=== PATIENT | male | born 1940 | race Caucasian/White ===

== ENCOUNTER 2018-02-07 15:57 | Emergency (ER) | payer MEDICARE, OTHER ==
--- NOTE | 2018-02-07 18:33 | CT ---
CT OF THE BRAIN WITHOUT CONTRAST 02/07/18 COMPARISON: 03/16/17 HISTORY: Choreiform movements. Slurred speech and involuntary movements. Concern for possible stroke. TECHNIQUE: Multiple contiguous axial images were obtained in a CT of the brain without contrast. FINDINGS: The brain is normal in morphology and attenuation without focal lesions or confluent areas of infarct ion. There is no evidence of hydrocephalus, intracranial hemorrhage, or extra-axial fluid collection. The calvarium and overlying soft tissues are unremarkable. The visualized paranasal sinuses and masto id air cells are well aerated. IMPRESSION: No evidence of acute intracranial abnormality. POS: [facility]
== END 2018-02-07 19:15 | disposition left against medical advice (07) ==
LOC: ERS 15:57
DX: R25.8 Other abnormal involuntary movements (principal); I48.91 Unspecified atrial fibrillation; E78.5 Hyperlipidemia, unspecified; I10 Essential (primary) hypertension
CPT/HCPCS: 70450

== ENCOUNTER 2018-09-15 08:10 | Day surgery (SDC) | payer MEDICARE, OTHER ==
[2018-09-15] MEDS ORDERED: Sodium Chloride 0.9% 20 ML ONE (08:20)
[2018-09-15] MEDS ORDERED: Acetaminophen 500 MG TAB PO PRN (08:28)
[2018-09-15] MEDS ORDERED: diphenhydrAMINE 50 MG in Sodium Chloride 0.9% 50 ML IVPB SCH (08:30)
[2018-09-15 08:42] VITALS: BP 194/85; TEMP 97.6
[2018-09-15] MEDS ORDERED: ADMIXTURE FEE IVPB SCH (08:45)
[2018-09-15] MEDS ORDERED: OCTAGAM IVPB SCH (08:45)
== END 2018-09-15 13:27 | disposition home or self-care (01) ==
LOC: ONC/OP 08:10
PROVIDERS: ATTEND Internal Medicine Hematology & Oncology
DX: M32.10 Systemic lupus erythematosus, organ or system involvement unspecified (principal); D47.3 Essential (hemorrhagic) thrombocythemia; G25.5 Other chorea; G61.9 Inflammatory polyneuropathy, unspecified
CPT/HCPCS: 96365; 96366; 96375; J1200; J1568; J7050

== ENCOUNTER 2018-10-18 08:25 | Day surgery (SDC) | payer MEDICARE, OTHER ==
[2018-10-18] MEDS ORDERED: Sodium Chloride 0.9% 20 ML ONE (08:36)
[2018-10-18 08:47] VITALS: BP 177/80; TEMP 98.7
[2018-10-18] MEDS ORDERED: diphenhydrAMINE 50 MG CAP PO SCH (09:30)
[2018-10-18] MEDS ORDERED: Acetaminophen 500 MG TAB PO SCH (09:30)
[2018-10-18] MEDS ORDERED: PRIVIGEN IVPB SCH (11:00)
[2018-10-18] MEDS ORDERED: ADMIXTURE FEE CHEMO IVPB SCH ×2 (11:00)
[2018-10-18] MEDS ORDERED: OCTAGAM IVPB SCH (11:00)
== END 2018-10-18 14:44 | disposition home or self-care (01) ==
LOC: ONC/OP 08:25
PROVIDERS: ATTEND Internal Medicine Hematology & Oncology
DX: D47.3 Essential (hemorrhagic) thrombocythemia (principal); M32.10 Systemic lupus erythematosus, organ or system involvement unspecified; G25.5 Other chorea; G61.9 Inflammatory polyneuropathy, unspecified; I48.91 Unspecified atrial fibrillation; M32.19 Other organ or system involvement in systemic lupus erythematosus; K21.9 Gastro-esophageal reflux disease without esophagitis; I10 Essential (primary) hypertension; Z79.01 Long term (current) use of anticoagulants; Z79.82 Long term (current) use of aspirin; Z79.899 Other long term (current) drug therapy
CPT/HCPCS: 96365; 96366; J1459; J1568

== ENCOUNTER 2018-10-19 08:47 | Day surgery (SDC) | payer MEDICARE, OTHER ==
[2018-10-19] MEDS ORDERED: diphenhydrAMINE 50 MG CAP PO SCH (09:15)
[2018-10-19] MEDS ORDERED: OCTAGAM IVPB SCH (09:15)
[2018-10-19] MEDS ORDERED: Acetaminophen 500 MG TAB PO SCH (09:15)
[2018-10-19] MEDS ORDERED: PRIVIGEN IVPB SCH (09:15)
[2018-10-19] MEDS ORDERED: ADMIXTURE FEE CHEMO IVPB SCH ×2 (09:15)
[2018-10-19] MEDS ORDERED: Sodium Chloride 0.9% 20 ML ONE (09:32)
[2018-10-19 10:21] VITALS: TEMP 97.6
== END 2018-10-19 17:56 | disposition home or self-care (01) ==
LOC: ONC/OP 08:47
PROVIDERS: ATTEND Internal Medicine Hematology & Oncology
DX: D47.3 Essential (hemorrhagic) thrombocythemia (principal); M32.10 Systemic lupus erythematosus, organ or system involvement unspecified; G25.5 Other chorea; G61.9 Inflammatory polyneuropathy, unspecified
CPT/HCPCS: 96365; 96366; J1459; J1568; J1642

== ENCOUNTER 2018-11-20 11:40 | Day surgery (SDC) | payer MEDICARE, OTHER ==
[2018-11-20] MEDS ORDERED: PRIVIGEN IVPB SCH (12:00)
[2018-11-20] MEDS ORDERED: Acetaminophen 500 MG TAB PO SCH (12:00)
[2018-11-20] MEDS ORDERED: diphenhydrAMINE 50 MG in Sodium Chloride 0.9% 50 ML IVPB SCH (12:00)
[2018-11-20 12:11] VITALS: BP 177/82; TEMP 98.4
== END 2018-11-20 14:15 | disposition home or self-care (01) ==
LOC: ONC/OP 11:40
PROVIDERS: ATTEND Internal Medicine Hematology & Oncology
DX: M32.10 Systemic lupus erythematosus, organ or system involvement unspecified (principal); D47.3 Essential (hemorrhagic) thrombocythemia; G25.5 Other chorea; G61.9 Inflammatory polyneuropathy, unspecified; I48.91 Unspecified atrial fibrillation; I10 Essential (primary) hypertension; K21.9 Gastro-esophageal reflux disease without esophagitis; Z79.01 Long term (current) use of anticoagulants; Z79.02 Long term (current) use of antithrombotics/antiplatelets; Z79.82 Long term (current) use of aspirin; Z79.899 Other long term (current) drug therapy
CPT/HCPCS: 96365; 96366; J1200; J1459; J7050

== ENCOUNTER 2018-11-21 08:18 | Day surgery (SDC) | payer MEDICARE, OTHER ==
[2018-11-21 08:56] VITALS: BP 158/82; TEMP 98.3
[2018-11-21] MEDS ORDERED: Acetaminophen 500 MG TAB PO SCH (09:00)
[2018-11-21] MEDS ORDERED: diphenhydrAMINE 50 MG in Sodium Chloride 0.9% 50 ML IVPB SCH (09:00)
[2018-11-21] MEDS ORDERED: PRIVIGEN IVPB SCH (09:00)
[2018-11-21] MEDS ORDERED: Sodium Chloride 0.9% 20 ML ONE (15:31)
== END 2018-11-21 15:35 | disposition home or self-care (01) ==
LOC: ONC/OP 08:18
PROVIDERS: ATTEND Internal Medicine Hematology & Oncology
DX: D47.3 Essential (hemorrhagic) thrombocythemia (principal); M32.10 Systemic lupus erythematosus, organ or system involvement unspecified; G25.5 Other chorea; G61.9 Inflammatory polyneuropathy, unspecified
CPT/HCPCS: 96365; 96366; 96375; J1200; J1459; J7050

== ENCOUNTER 2018-12-18 09:21 | Day surgery (SDC) | payer MEDICARE, OTHER ==
[~2018-12-18 09:21] MED LIST: Acetaminophen 500 MG TAB PO SCH; OCTAGAM 10% 60 GM in Admixture Fee 1 EACH IVPB SCH; PRIVIGEN IVPB SCH; diphenhydrAMINE 50 MG in Sodium Chloride 0.9% 50 ML IVPB SCH
[2018-12-18] MEDS ORDERED: Sodium Chloride 0.9% 20 ML ONE (09:26)
[2018-12-18] MEDS ORDERED: diphenhydrAMINE 50 MG CAP PO SCH (10:45)
[2018-12-18 10:49] VITALS: BP 153/73; TEMP 98.6
[2018-12-19] MEDS ORDERED: diphenhydrAMINE 50 MG CAP PO SCH (04:15)
== END 2018-12-18 14:52 | disposition home or self-care (01) ==
LOC: ONC/OP 09:21
PROVIDERS: ATTEND Internal Medicine Hematology & Oncology
DX: M32.10 Systemic lupus erythematosus, organ or system involvement unspecified (principal); G25.5 Other chorea; G61.9 Inflammatory polyneuropathy, unspecified; D47.3 Essential (hemorrhagic) thrombocythemia; I48.91 Unspecified atrial fibrillation; I10 Essential (primary) hypertension; K21.9 Gastro-esophageal reflux disease without esophagitis; Z88.2 Allergy status to sulfonamides; Z79.01 Long term (current) use of anticoagulants; Z79.899 Other long term (current) drug therapy
CPT/HCPCS: 96365; 96366; J1200; J1459; J1568; J7050

== ENCOUNTER 2018-12-19 08:36 | Day surgery (SDC) | payer MEDICARE, OTHER ==
[~2018-12-19 08:36] MED LIST changes: +ADMIXTURE FEE IVPB SCH; +OCTAGAM IVPB SCH; -PRIVIGEN IVPB SCH; +diphenhydrAMINE 50 MG CAP PO SCH; -diphenhydrAMINE 50 MG in Sodium Chloride 0.9% 50 ML IVPB SCH
[2018-12-19] MEDS ORDERED: Sodium Chloride 0.9% 20 ML ONE (08:52)
[2018-12-19 09:32] VITALS: BP 165/74; TEMP 98.6
== END 2018-12-19 12:14 | disposition home or self-care (01) ==
LOC: ONC/OP 08:36
PROVIDERS: ATTEND Internal Medicine Hematology & Oncology
DX: M32.19 Other organ or system involvement in systemic lupus erythematosus (principal); D47.3 Essential (hemorrhagic) thrombocythemia; G25.5 Other chorea; G61.9 Inflammatory polyneuropathy, unspecified; I48.91 Unspecified atrial fibrillation; I10 Essential (primary) hypertension; K21.9 Gastro-esophageal reflux disease without esophagitis; Z79.01 Long term (current) use of anticoagulants; Z79.82 Long term (current) use of aspirin; Z79.899 Other long term (current) drug therapy
CPT/HCPCS: 96365; 96366; J1568

== ENCOUNTER 2019-01-16 08:14 | Day surgery (SDC) | payer MEDICARE, OTHER ==
[~2019-01-16 08:14] MED LIST changes: -OCTAGAM 10% 60 GM in Admixture Fee 1 EACH IVPB SCH; +diphenhydrAMINE 50 MG in Sodium Chloride 0.9% 50 ML IVPB SCH
[2019-01-16] MEDS ORDERED: Sodium Chloride 0.9% 20 ML ONE (08:26)
[2019-01-16 09:06] VITALS: BP 161/79; TEMP 98.6
[2019-01-17] MEDS ORDERED: Acetaminophen 500 MG TAB PO SCH (01:15)
[2019-01-17] MEDS ORDERED: OCTAGAM IVPB SCH (01:15)
[2019-01-17] MEDS ORDERED: diphenhydrAMINE 50 MG in Sodium Chloride 0.9% 50 ML IVPB SCH (01:15)
[2019-01-17] MEDS ORDERED: ADMIXTURE FEE IVPB SCH (01:15)
== END 2019-01-16 12:12 | disposition home or self-care (01) ==
LOC: ONC/OP 08:14
PROVIDERS: ATTEND Internal Medicine Hematology & Oncology
DX: D47.3 Essential (hemorrhagic) thrombocythemia (principal); M32.10 Systemic lupus erythematosus, organ or system involvement unspecified; G25.5 Other chorea; G61.9 Inflammatory polyneuropathy, unspecified; I48.91 Unspecified atrial fibrillation; I10 Essential (primary) hypertension; K21.9 Gastro-esophageal reflux disease without esophagitis
CPT/HCPCS: 96365; 96366; 96375; J1200; J1568; J7050

== ENCOUNTER 2019-01-17 00:23 | Day surgery (SDC) | payer MEDICARE, OTHER ==
[2019-01-17] MEDS ORDERED: Sodium Chloride 0.9% 20 ML ONE (08:17)
[2019-01-17] MEDS ORDERED: OCTAGAM IVPB SCH (08:30)
[2019-01-17] MEDS ORDERED: diphenhydrAMINE 50 MG/ML VIAL IVP SCH (08:30)
[2019-01-17] MEDS ORDERED: ADMIXTURE FEE IVPB SCH (08:30)
[2019-01-17] MEDS ORDERED: Acetaminophen 500 MG TAB PO SCH (08:30)
[2019-01-17 10:27] VITALS: BP 165/71; TEMP 98
== END 2019-01-17 12:40 | disposition home or self-care (01) ==
LOC: ONC/OP 00:23
PROVIDERS: ATTEND Internal Medicine Hematology & Oncology
DX: D47.3 Essential (hemorrhagic) thrombocythemia (principal); M32.10 Systemic lupus erythematosus, organ or system involvement unspecified; G25.5 Other chorea; G61.9 Inflammatory polyneuropathy, unspecified
CPT/HCPCS: 96365; 96366; J1200; J1568

== ENCOUNTER 2020-07-16 08:46 | Day surgery (SDC) | payer MEDICARE, OTHER ==
[2020-07-15 14:33] VITALS: BMI 23.7
[2020-07-16 09:26] LABS: INR-International Normal Ratio 1.2; PTT 34.1 sec (22.9-36.1); Prothrombin Time 14.8 sec (12.0-14.7)
[2020-07-16 10:29] VITALS: BP 150/68; TEMP 97.8
--- NOTE | 2020-07-16 15:15 | CT ---
CT GUIDED RIGHT ILIAC BONE MARROW ASPIRATION AND BIOPSY: CLINICAL HISTORY: Thrombocytopenia. SLE. PROCEDURE: The procedure including the risks and complications were explained to the patient, and informed conse nt was obtained. The patient was placed on the CT scan table in the prone position. Noncontrasted CT images were obtained through the pelvis. An area was marked overlying the RIGHT asim c bone, and the area was meticulously prepped and draped in usual sterile fashion. The skin and subcutaneous tissues were infiltrated with buffered 1% lidocaine for local anesthesia. After a small skin incision was made, an 11-gauge needle was advanced and positioning was confirmed w ith axial CT images. Approximately 10 milliliters of bone marrow aspirate was obtained. The needle was then further advanced, and a bone marrow biopsy was performed. The needle was removed, and hemost asis was achieved with direct pressure. The patient tolerated the procedure well and without immediate complication. The patient was transported to radiology nurses holding area for further lyndon toring prior to discharge. IMPRESSION: Technically successful percutaneous bone marrow aspiration and biopsy. Pathology results are pending.
--- NOTE | 2020-07-17 09:48 | CT ---
CT GUIDED RIGHT ILIAC BONE MARROW ASPIRATION AND BIOPSY: CLINICAL HISTORY: Thrombocytopenia. SLE. PROCEDURE: The procedure including the risks and complications were explained to the patient, and informed conse nt was obtained. The patient was placed on the CT scan table in the prone position. Noncontrasted CT images were obtained through the pelvis. An area was marked overlying the RIGHT asim c bone, and the area was meticulously prepped and draped in usual sterile fashion. The skin and subcutaneous tissues were infiltrated with buffered 1% lidocaine for local anesthesia. After a small skin incision was made, an 11-gauge needle was advanced and positioning was confirmed w ith axial CT images. Approximately 10 milliliters of bone marrow aspirate was obtained. The needle was then further advanced, and a bone marrow biopsy was performed. The needle was removed, and hemost asis was achieved with direct pressure. The patient tolerated the procedure well and without immediate complication. The patient was transported to radiology nurses holding area for further lyndon toring prior to discharge. IMPRESSION: Technically successful percutaneous bone marrow aspiration and biopsy. Pathology results are pending. Transcribed Date/Time: 07/17/2020 9:48 AM
== END 2020-07-16 12:25 | disposition home or self-care (01) ==
LOC: CT 08:46
PROVIDERS: ATTEND Internal Medicine Hematology & Oncology
PROC: 07DR0ZX Extraction of Iliac Bone Marrow, Open Approach, Diagnostic (ICD-10-PCS; principal; 2020-07-16)
DX: D69.6 Thrombocytopenia, unspecified (principal); M32.10 Systemic lupus erythematosus, organ or system involvement unspecified; D64.9 Anemia, unspecified; I10 Essential (primary) hypertension; I25.10 Atherosclerotic heart disease of native coronary artery without angina pectoris; K21.9 Gastro-esophageal reflux disease without esophagitis; M19.90 Unspecified osteoarthritis, unspecified site; Z79.01 Long term (current) use of anticoagulants; Z85.46 Personal history of malignant neoplasm of prostate; Z95.5 Presence of coronary angioplasty implant and graft
CPT/HCPCS: 20225; 77012; 85097; 85610; 85730; 88184; 88237; 88264; 88280; 88305; 88311; 88313; 88341; 88342

== ENCOUNTER 2020-09-16 12:58 | Day surgery (SDC) | payer MEDICARE, OTHER ==
[2020-09-16] MEDS ORDERED: Acetaminophen 500 MG TAB PO SCH (13:15)
[2020-09-16] MEDS ORDERED: diphenhydrAMINE 25 MG CAP PO SCH (13:15)
[2020-09-16 16:47] VITALS: BP 160/72; TEMP 98.2
[2020-09-16 17:15] LABS: Hemoglobin 7.8 g/dL (14.0-18.0); Mean Corpuscular HGB CONC 31.1 g/dL (32.0-36.0); Mean Corpuscular Volume 77.4 fL (78.0-98.0); Red Blood Cell (RBC) Count 3.26 mill/uL (4.70-6.10); White Blood Cell (WBC) Count 9.9 thou/uL (4.8-10.8)
[2020-09-16 17:26] LABS: Mean Platelet Volume 12.9 fL (7.4-10.4); Platelet Count 100 thou/uL (130-400); RBC Distribution Width 31.5 % (11.5-14.5)
[2020-09-17] MEDS ORDERED: FLU VACC QS2020-21(65YR UP)/PF 240 MCG/0.7 ML SYRINGE IM ONE (09:00)
== END 2020-09-16 17:00 | disposition home or self-care (01) ==
LOC: ONC/OP 12:58 → ONC 12:59 → ONC/OP 17:00
PROVIDERS: ATTEND Internal Medicine Hematology & Oncology
PROC: 30233N1 Transfusion of Nonautologous Red Blood Cells into Peripheral Vein, Percutaneous Approach (ICD-10-PCS; principal; 2020-09-16)
DX: D64.9 Anemia, unspecified (principal); D69.6 Thrombocytopenia, unspecified
CPT/HCPCS: 36430; 80053; 82248; 83615; 84100; 84550; 85027; 86850; 86900; 86901; P9016

== ENCOUNTER 2020-10-29 08:18 | Outpatient (CLI) | payer MEDICARE, OTHER ==
[2020-10-29] MEDS ORDERED: Magnevist 469MG/ML 20 ML VIAL ONE (09:26)
--- NOTE | 2020-10-29 10:55 | MRI ---
EXAM: MRI of the abdomen without and with contrast COMPARISON: None HISTORY: Pancreatic abnormality seen on outside hospital CT. TECHNIQUE: Multiplanar multi sequence MR images were taken of the abdomen without and with IV contras t. An MRCP was performed. FINDINGS: Liver: Tiny subcentimeter foci of high T2 signal in the liver that do not demonstrate enhancement rep resent cysts. No intrahepatic ductal dilatation. Normal signal without dropout on out of phase images. No abnormal enhancement. Gallbladder: The pancreatic duct is enlarged measuring 13 mm with atrophy of the majority of the panc reatic tissue. No definite pancreatic head mass is seen. Common bile duct: Normal caliber without filling defects Adrenal glands: Unremarkable. Kidneys: No hydronephrosis. Bilateral renal cysts measuring up to 10.9 cm in size. No abnormal areas of enhancement. Spleen: Unremarkable. Pancreas: Unremarkable. No abnormal enhancement. The postcontrast images are limited secondary to mot ion artifact. Retroperitoneum: No enlarged lymph nodes Bones: No marrow signal abnormality. IMPRESSION: 1. There is enlargement of the pancreatic duct which tapers to normal caliber in the region the pancr eatic head. This is concerning for a pancreatic head neoplasm although one is not visualized. Evaluation is limited given respiratory motion artifact on the postcontrast images. 2. Bilateral renal cysts 3. Hepatic cysts
== END 2020-10-29 08:19 | disposition home or self-care (01) ==
LOC: BICMRI 08:18
PROVIDERS: ATTEND Internal Medicine Gastroenterology
DX: D46.9 Myelodysplastic syndrome, unspecified (principal); I48.91 Unspecified atrial fibrillation; R93.89 Abnormal findings on diagnostic imaging of other specified body structures; N28.1 Cyst of kidney, acquired; K76.89 Other specified diseases of liver; K86.89 Other specified diseases of pancreas
CPT/HCPCS: 74183; A9579

== ENCOUNTER 2020-11-12 12:48 | Day surgery (SDC) | payer MEDICARE, OTHER ==
[~2020-11-12 12:48] MED LIST changes: -ADMIXTURE FEE IVPB SCH; +Acetaminophen 500 MG TAB PO PRN; -Acetaminophen 500 MG TAB PO SCH; -OCTAGAM IVPB SCH; +diphenhydrAMINE 25 MG CAP PO PRN; -diphenhydrAMINE 50 MG CAP PO SCH; -diphenhydrAMINE 50 MG in Sodium Chloride 0.9% 50 ML IVPB SCH
[2020-11-12] MEDS ORDERED: Sodium Chloride 0.9% 20 ML ONE (13:14)
[2020-11-12 15:52] VITALS: BP 171/74; TEMP 97.6
[2020-11-12 16:12] LABS: #Lymphocytes 1.3 thou/uL (1.20-3.40); #Monocytes 0.6 thou/uL (0.11-0.59); #Neutrophils 8.3 thou/uL (1.40-6.50); %Basophils 0.1 % (0.0-1.0); %Eosinophils 0.3 % (0.0-10.0); %Lymphocytes 12.2 % (21.0-51.0); %Monocytes 6.1 % (0.0-10.0); %Neutrophils 81.4 % (42.0-75.0); Hemoglobin 7.4 g/dL (14.0-18.0); Mean Corpuscular HGB CONC 31.1 g/dL (32.0-36.0); Mean Corpuscular Hemoglobin 23.7 pg (27.0-31.0); Mean Corpuscular Volume 76.3 fL (78.0-98.0); Mean Platelet Volume 13.8 fL (7.4-10.4); Platelet Count 56 thou/uL (130-400); RBC Distribution Width 32.7 % (11.5-14.5); Red Blood Cell (RBC) Count 3.11 mill/uL (4.70-6.10); White Blood Cell (WBC) Count 10.2 thou/uL (4.8-10.8)
[2020-11-12 16:33] LABS: Anisocytosis MODERATE=16-30 cells (100X) (0-5/hpf); Burr Cells SLIGHT = 2-5 cells (100X) (0-1/hpf); Hypochromia SLIGHT = 6-15 cells (100X) (0-5/hpf); Large Platelets SLIGHT; MDiff Complete? YES; Microcytosis SLIGHT = 6-15 cells (100X) (0-5/hpf); Ovalocytes SLIGHT = 2-5 cells (100X) (0-1/hpf); Platelet Morphology Comment Appears Decreased; Poikilocytosis MODERATE=16-30 cells (100X) (0-5/hpf); Polychromasia MODERATE = 3-4 cells (100X) (0-2/hpf); Schistocytes SLIGHT = 2-5 cells (100X) (0-1/hpf); Target Cells SLIGHT = 2-5 cells (100X) (0-1/hpf); Tear Drops SLIGHT = 2-5 cells (100X) (0-1/hpf)
== END 2020-11-12 15:54 | disposition home or self-care (01) ==
LOC: ONC/OP 12:48
PROVIDERS: ATTEND Internal Medicine Hematology & Oncology
PROC: 30233N1 Transfusion of Nonautologous Red Blood Cells into Peripheral Vein, Percutaneous Approach (ICD-10-PCS; principal; 2020-11-12)
DX: D64.9 Anemia, unspecified (principal); D69.6 Thrombocytopenia, unspecified
CPT/HCPCS: 36430; 85025; 86850; 86900; 86901; P9016; Q0163

== ENCOUNTER 2020-12-10 14:33 | Day surgery (SDC) | payer MEDICARE, OTHER ==
[2020-12-10] MEDS ORDERED: diphenhydrAMINE 25 MG CAP PO SCH (15:00)
[2020-12-10] MEDS ORDERED: Acetaminophen 500 MG TAB PO SCH (15:00)
[2020-12-10 17:39] VITALS: BP 151/67; TEMP 98.1
== END 2020-12-10 17:52 | disposition home or self-care (01) ==
LOC: ONC/OP 14:33
PROVIDERS: ATTEND Nurse Practitioner Acute Care
PROC: 30233N1 Transfusion of Nonautologous Red Blood Cells into Peripheral Vein, Percutaneous Approach (ICD-10-PCS; principal; 2020-12-10)
DX: D64.9 Anemia, unspecified (principal); D69.6 Thrombocytopenia, unspecified
CPT/HCPCS: 36430; 86850; 86900; 86901; P9016; Q0163

== ENCOUNTER 2020-12-18 08:31 | Day surgery (SDC) | payer MEDICARE, OTHER ==
[2020-12-18] MEDS ORDERED: Sodium Chloride 0.9% 20 ML ONE (09:00)
[2020-12-18] MEDS ORDERED: diphenhydrAMINE 25 MG CAP PO SCH (09:15)
[2020-12-18] MEDS ORDERED: Acetaminophen 500 MG TAB PO SCH (09:15)
[2020-12-18 11:10] VITALS: TEMP 98
[2020-12-18 14:05] VITALS: BP 179/74
== END 2020-12-18 14:06 | disposition home or self-care (01) ==
LOC: ONC/OP 08:31
PROVIDERS: ATTEND Internal Medicine Hematology & Oncology
PROC: 30233N1 Transfusion of Nonautologous Red Blood Cells into Peripheral Vein, Percutaneous Approach (ICD-10-PCS; principal; 2020-12-18)
DX: D64.9 Anemia, unspecified (principal); D69.6 Thrombocytopenia, unspecified
CPT/HCPCS: 36430; 86850; 86900; 86901; P9016; Q0163

== ENCOUNTER 2021-01-08 08:31 | Day surgery (SDC) | payer MEDICARE, OTHER ==
[~2021-01-08 08:31] MED LIST changes: -Acetaminophen 500 MG TAB PO PRN; +Acetaminophen 500 MG TAB PO SCH; -diphenhydrAMINE 25 MG CAP PO PRN; +diphenhydrAMINE 25 MG CAP PO SCH
[2021-01-08] MEDS ORDERED: Sodium Chloride 0.9% 20 ML ONE (09:25)
[2021-01-08 12:55] VITALS: BP 179/72; TEMP 98.6
== END 2021-01-08 12:55 | disposition home or self-care (01) ==
LOC: ONC/OP 08:31
PROVIDERS: ATTEND Internal Medicine Hematology & Oncology
PROC: 30233N1 Transfusion of Nonautologous Red Blood Cells into Peripheral Vein, Percutaneous Approach (ICD-10-PCS; principal; 2021-01-08)
DX: D64.9 Anemia, unspecified (principal); D69.6 Thrombocytopenia, unspecified
CPT/HCPCS: 36430; 86850; 86900; 86901; P9016; Q0163

== ENCOUNTER 2021-01-14 09:40 | Day surgery (SDC) | payer MEDICARE, OTHER ==
[2021-01-14] MEDS ORDERED: Acetaminophen 500 MG TAB PO SCH (10:00)
[2021-01-14] MEDS ORDERED: diphenhydrAMINE 25 MG CAP PO SCH (10:00)
[2021-01-14] MEDS ORDERED: Sodium Chloride 0.9% 20 ML ONE (10:11)
[2021-01-14 15:37] VITALS: BP 163/73; TEMP 97.7
== END 2021-01-14 15:58 | disposition home or self-care (01) ==
LOC: ONC/OP 09:40
PROVIDERS: ATTEND Internal Medicine Hematology & Oncology
PROC: 30233N1 Transfusion of Nonautologous Red Blood Cells into Peripheral Vein, Percutaneous Approach (ICD-10-PCS; principal; 2021-01-14)
DX: D64.9 Anemia, unspecified (principal); D69.6 Thrombocytopenia, unspecified
CPT/HCPCS: 36430; 86850; 86900; 86901; P9016; Q0163

== ENCOUNTER 2021-01-16 09:52 | Day surgery (SDC) | payer MEDICARE, OTHER ==
[2021-01-16] MEDS ORDERED: diphenhydrAMINE 25 MG CAP PO SCH (10:30)
[2021-01-16] MEDS ORDERED: Acetaminophen 500 MG TAB PO SCH (10:30)
[2021-01-16 13:31] VITALS: TEMP 97.9
[2021-01-16 13:41] VITALS: BP 186/83
[2021-01-16 14:40] LABS: Hemoglobin 7.3 g/dL (14.0-18.0); Mean Corpuscular HGB CONC 32.4 g/dL (32.0-36.0); Mean Corpuscular Hemoglobin 24.9 pg (27.0-31.0); Mean Platelet Volume 9.8 fL (7.4-10.4); Platelet Count 44 thou/uL (130-400); RBC Distribution Width 26.9 % (11.5-14.5); Red Blood Cell (RBC) Count 2.94 mill/uL (4.70-6.10); White Blood Cell (WBC) Count 4.5 thou/uL (4.8-10.8)
[2021-01-16 14:55] LABS: Anisocytosis MODERATE=16-30 cells (100X) (0-5/hpf); Band 3 % (5-11); Eosinophils 1 % (0-10); Hypochromia SLIGHT = 6-15 cells (100X) (0-5/hpf); Lymphocytes 17 % (21-51); MDiff Complete? YES; Microcytosis SLIGHT = 6-15 cells (100X) (0-5/hpf); Monocytes 12 % (0-10); Neutrophil 67 % (42-75); Nucleated RBC 1 % (0); Ovalocytes SLIGHT = 2-5 cells (100X) (0-1/hpf); Platelet Morphology Comment Appears Decreased; Poikilocytosis SLIGHT = 6-15 cells (100X) (0-5/hpf); Polychromasia SLIGHT = 2-3 cells (100X) (0-2/hpf); Reflex for Review?? YES; Schistocytes MODERATE= 6-15 cells (100X) (0-1/hpf); Target Cells SLIGHT = 2-5 cells (100X) (0-1/hpf); Tear Drops SLIGHT = 2-5 cells (100X) (0-1/hpf)
== END 2021-01-16 13:42 | disposition home or self-care (01) ==
LOC: ONC/OP 09:52
PROVIDERS: ATTEND Internal Medicine Hematology & Oncology
PROC: 30233R1 Transfusion of Nonautologous Platelets into Peripheral Vein, Percutaneous Approach (ICD-10-PCS; principal; 2021-01-16)
DX: D69.6 Thrombocytopenia, unspecified (principal); D64.9 Anemia, unspecified
CPT/HCPCS: 36430; 85025; 85060; 86850; 86900; 86901; P9035; Q0163

== ENCOUNTER 2021-01-28 08:28 | Day surgery (SDC) | payer MEDICARE, OTHER ==
[2021-01-28] MEDS ORDERED: diphenhydrAMINE 25 MG CAP PO SCH (09:00)
[2021-01-28] MEDS ORDERED: Acetaminophen 500 MG TAB PO SCH (09:00)
[2021-01-28] MEDS ORDERED: Sodium Chloride 0.9% 20 ML ONE (10:32)
[2021-01-28 12:38] VITALS: BP 157/72; TEMP 98.1
== END 2021-01-28 12:38 | disposition home or self-care (01) ==
LOC: ONC/OP 08:28
PROVIDERS: ATTEND Internal Medicine Hematology & Oncology
PROC: 30233N1 Transfusion of Nonautologous Red Blood Cells into Peripheral Vein, Percutaneous Approach (ICD-10-PCS; principal; 2021-01-28)
DX: D64.9 Anemia, unspecified (principal)
CPT/HCPCS: 36430; 86850; 86900; 86901; P9016; Q0163

== ENCOUNTER 2021-01-30 08:34 | Day surgery (SDC) | payer MEDICARE, OTHER ==
[2021-01-30] MEDS ORDERED: Acetaminophen 500 MG TAB PO PRN (09:41)
[2021-01-30] MEDS ORDERED: diphenhydrAMINE 25 MG CAP PO PRN (09:41)
[2021-01-30 11:58] VITALS: TEMP 97.9
[2021-01-30 13:28] VITALS: BP 170/75
== END 2021-01-30 13:31 | disposition home or self-care (01) ==
LOC: ONC/OP 08:34
PROVIDERS: ATTEND Internal Medicine Hematology & Oncology
PROC: 30233N1 Transfusion of Nonautologous Red Blood Cells into Peripheral Vein, Percutaneous Approach (ICD-10-PCS; principal; 2021-01-30)
PROC: 30233R1 Transfusion of Nonautologous Platelets into Peripheral Vein, Percutaneous Approach (ICD-10-PCS; 2021-01-30)
DX: D64.9 Anemia, unspecified (principal); D69.6 Thrombocytopenia, unspecified
CPT/HCPCS: 36430; 86850; 86900; 86901; P9016; P9035

== ENCOUNTER 2021-02-06 08:17 | Day surgery (SDC) | payer MEDICARE, OTHER ==
[2021-02-06 08:46] LABS: INR-International Normal Ratio 1.2; PTT 35.2 sec (22.9-36.1); Prothrombin Time 15.9 sec (12.0-14.7)
[2021-02-06 09:01] LABS: #Lymphocytes 1.2 thou/uL (1.20-3.40); #Monocytes 0.6 thou/uL (0.11-0.59); #Neutrophils 4.3 thou/uL (1.40-6.50); %Basophils 0.5 % (0.0-1.0); %Eosinophils 0.4 % (0.0-10.0); %Lymphocytes 19.4 % (21.0-51.0); %Monocytes 9.5 % (0.0-10.0); %Neutrophils 70.1 % (42.0-75.0); Hemoglobin 6.7 g/dL (14.0-18.0); Mean Corpuscular HGB CONC 30.9 g/dL (32.0-36.0); Mean Corpuscular Hemoglobin 25.2 pg (27.0-31.0); Mean Corpuscular Volume 81.7 fL (78.0-98.0); Platelet Count 20 thou/uL (130-400); RBC Distribution Width 26.2 % (11.5-14.5); Red Blood Cell (RBC) Count 2.66 mill/uL (4.70-6.10); White Blood Cell (WBC) Count 6.1 thou/uL (4.8-10.8)
[2021-02-06 09:27] LABS: Hypochromia MODERATE=16-30 cells (100X) (0-5/hpf); MDiff Complete? YES; Platelet Morphology Comment Appears Decreased; Polychromasia SLIGHT = 2-3 cells (100X) (0-2/hpf); Schistocytes MODERATE= 6-15 cells (100X) (0-1/hpf)
[2021-02-06 10:35] VITALS: BP 152/70; TEMP 98.2
[2021-02-06 10:36] VITALS: BMI 23.8
== END 2021-02-06 11:30 | disposition home or self-care (01) ==
LOC: CT 08:17
PROVIDERS: ATTEND Internal Medicine Hematology & Oncology
PROC: 07DR3ZX Extraction of Iliac Bone Marrow, Percutaneous Approach, Diagnostic (ICD-10-PCS; principal; 2021-02-06)
DX: M32.19 Other organ or system involvement in systemic lupus erythematosus (principal); G25.5 Other chorea; D69.6 Thrombocytopenia, unspecified; D64.9 Anemia, unspecified; I10 Essential (primary) hypertension; I48.91 Unspecified atrial fibrillation; G62.9 Polyneuropathy, unspecified; Z79.52 Long term (current) use of systemic steroids; Z79.82 Long term (current) use of aspirin; Z79.899 Other long term (current) drug therapy; Z95.5 Presence of coronary angioplasty implant and graft
CPT/HCPCS: 20225; 36415; 77002; 85025; 85097; 85610; 85730; 88184; 88237; 88264; 88280; 88305; 88311; 88313; 88341; 88342; J2250; J3010

== ENCOUNTER 2021-02-10 08:26 | Day surgery (SDC) | payer MEDICARE, OTHER ==
[~2021-02-10 08:26] MED LIST changes: -Acetaminophen 500 MG TAB PO SCH; +Fentanyl 100 MCG/2 ML VIAL ONE; +Midazolam HCl 2 mg/2 ml Vial ONE; +Sodium Bicarbonate 2.5 MEQ/5 ML VIAL ONE; -diphenhydrAMINE 25 MG CAP PO SCH
[2021-02-10] MEDS ORDERED: Acetaminophen 500 MG TAB PO PRN (09:02)
[2021-02-10] MEDS ORDERED: diphenhydrAMINE 25 MG CAP PO PRN (09:02)
[2021-02-10 14:05] LABS: Hemoglobin 7.7 g/dL (14.0-18.0); Mean Corpuscular Hemoglobin 27.5 pg (27.0-31.0); Mean Corpuscular Volume 83.4 fL (78.0-98.0); Platelet Count 20 thou/uL (130-400); RBC Distribution Width 24.6 % (11.5-14.5); Red Blood Cell (RBC) Count 2.79 mill/uL (4.70-6.10); White Blood Cell (WBC) Count 5.1 thou/uL (4.8-10.8)
[2021-02-10 14:06] LABS: #Lymphocytes 1.1 thou/uL (1.20-3.40); #Monocytes 0.6 thou/uL (0.11-0.59); #Neutrophils 3.4 thou/uL (1.40-6.50); %Basophils 0.3 % (0.0-1.0); %Eosinophils 0.7 % (0.0-10.0); %Lymphocytes 21.2 % (21.0-51.0); %Monocytes 11.6 % (0.0-10.0); %Neutrophils 66.2 % (42.0-75.0)
[2021-02-10 14:23] LABS: Anisocytosis SLIGHT = 6-15 cells (100X) (0-5/hpf); Helmet Cells SLIGHT = 2-5 cells (100X) (0-1/hpf); Hypochromia SLIGHT = 6-15 cells (100X) (0-5/hpf); Large Platelets MODERATE; MDiff Complete? YES; Ovalocytes SLIGHT = 2-5 cells (100X) (0-1/hpf); Platelet Morphology Comment Appears Decreased; Poikilocytosis SLIGHT = 6-15 cells (100X) (0-5/hpf); Polychromasia MODERATE = 3-4 cells (100X) (0-2/hpf); Schistocytes MODERATE= 6-15 cells (100X) (0-1/hpf); Target Cells SLIGHT = 2-5 cells (100X) (0-1/hpf); Tear Drops SLIGHT = 2-5 cells (100X) (0-1/hpf)
[2021-02-10 14:54] VITALS: TEMP 98.2
[2021-02-10 14:56] VITALS: BP 174/80
== END 2021-02-10 15:01 | disposition home or self-care (01) ==
LOC: ONC/OP 08:26
PROVIDERS: ATTEND Internal Medicine Hematology & Oncology
PROC: 30233N1 Transfusion of Nonautologous Red Blood Cells into Peripheral Vein, Percutaneous Approach (ICD-10-PCS; principal; 2021-02-10)
DX: D64.9 Anemia, unspecified (principal); D69.6 Thrombocytopenia, unspecified
CPT/HCPCS: 36430; 85025; 86850; 86900; 86901; J3010; P9016; Q0163

== ENCOUNTER 2021-02-25 09:47 | Inpatient (IN) | payer MEDICARE, OTHER ==
[2021-02-25] MEDS ORDERED: Digoxin 0.5 MG/2 ML AMP ONE (10:17)
[2021-02-25] MEDS ORDERED: Magnesium 2 GM/50 ML BAG (IN WATER) ONE (10:17)
[2021-02-25 10:34] LABS: INR-International Normal Ratio 1.4; PTT 33.2 sec (22.9-36.1); Prothrombin Time 17.5 sec (12.0-14.7)
[2021-02-25 10:41] LABS: Hemoglobin 7.4 g/dL (14.0-18.0); Mean Corpuscular HGB CONC 30.5 g/dL (32.0-36.0); Mean Corpuscular Hemoglobin 25.3 pg (27.0-31.0); Mean Corpuscular Volume 82.9 fL (78.0-98.0); Platelet Count 18 thou/uL (130-400); RBC Distribution Width 27.9 % (11.5-14.5); Red Blood Cell (RBC) Count 2.93 mill/uL (4.70-6.10); White Blood Cell (WBC) Count 6.6 thou/uL (4.8-10.8)
[2021-02-25 10:48] LABS: ALT (SGPT) 15 U/L (8-55); AST (SGOT) 16 U/L (5-34); Albumin 3.5 g/dL (3.4-4.8); Alkaline Phosphatase 75 U/L (40-110); Anion Gap 15 mmol/L (10-20); BUN (Urea Nitrogen) 35 mg/dL (8.4-25.7); Bilirubin, Total 1.4 mg/dL (0.2-1.2); Calc. Creatinine Clearance 0 mL/min (70-130); Calcium 8.9 mg/dL (7.8-10.44); Carbon Dioxide 27 mmol/L (23-31); Chloride 98 mmol/L (98-107); Globulin 3.7 g/dL (2.4-3.5); Glucose 112 mg/dL (83-110); Potassium 3.7 mmol/L (3.5-5.1); Protein, Total 7.2 g/dL (5.8-8.1); Sodium 136 mmol/L (136-145)
[2021-02-25 10:59] LABS: #Basophils 0.1 thou/uL (0.0-0.2); #Lymphocytes 1.2 thou/uL (1.20-3.40); #Monocytes 0.9 thou/uL (0.11-0.59); #Neutrophils 4.4 thou/uL (1.40-6.50); %Basophils 0.9 % (0.0-1.0); %Eosinophils 0.4 % (0.0-10.0); %Lymphocytes 18.3 % (21.0-51.0); %Neutrophils 67.4 % (42.0-75.0); Anisocytosis MARKED = >30 cells (100X) (0-5/hpf); Bite Cells SLIGHT = 2-5 cells (100X) (0-1/hpf); Hypochromia SLIGHT = 6-15 cells (100X) (0-5/hpf); MDiff Complete? YES; Platelet Morphology Comment Appears Decreased; Polychromasia MODERATE = 3-4 cells (100X) (0-2/hpf); Schistocytes SLIGHT = 2-5 cells (100X) (0-1/hpf)
[2021-02-25 11:05] LABS: CKMB 1.6 ng/mL (0-6.6)
[2021-02-25] MEDS ORDERED: Ondansetron PF 4 MG/2 ML Vial IVP PRN (12:48)
[2021-02-25] MEDS ORDERED: Senokot S 8.6-50 MG TAB PO PRN (12:48)
[2021-02-25] MEDS ORDERED: Acetaminophen 325 MG TAB PO PRN (12:48)
[2021-02-25] MEDS ORDERED: Metoprolol Tartrate 25 MG TAB ONE (13:21)
[2021-02-25] MEDS ORDERED: Metoprolol Tartrate 25 MG TAB PO SCH ×2 (13:30→21:00)
[2021-02-25 14:30] LABS: Troponin I 0.244 ng/mL (< 0.028)
[2021-02-25 16:07] VITALS: BMI 23.6
[2021-02-25 16:45] LABS: Troponin I 0.262 ng/mL (< 0.028)
[2021-02-25] MEDS ORDERED: Dronedarone HCl 400 MG TAB PO SCH (17:00)
[2021-02-25 18:03] LABS: SARS-CoV-2 PCR by NAA Not Detected (NotDetected)
[2021-02-25] MEDS ORDERED: traZODone HCl 50 MG TAB PO PRN (18:43)
[2021-02-25] MEDS ORDERED: Latanoprost 0.005% Ophth Soln 2.5 ml Bottle EA EYE SCH (21:00)
[2021-02-25] MEDS: Gabapentin 300 MG CAP PO SCH (21:00)
[2021-02-25] MEDS ORDERED: TETRABENAZINE 12.5 MG PO SCH (21:00)
[2021-02-25] MEDS ORDERED: Atorvastatin Calcium 20 MG TAB PO SCH (21:00)
[2021-02-25] MEDS: Mycophenolate 250 MG CAP PO SCH (21:02)
[2021-02-26 05:34] LABS: ALT (SGPT) 11 U/L (8-55); AST (SGOT) 12 U/L (5-34); Albumin 3.1 g/dL (3.4-4.8); Alkaline Phosphatase 69 U/L (40-110); Anion Gap 10 mmol/L (10-20); BUN (Urea Nitrogen) 32 mg/dL (8.4-25.7); Bilirubin, Total 1.1 mg/dL (0.2-1.2); Calc. Creatinine Clearance 70 mL/min (70-130); Calcium 8.2 mg/dL (7.8-10.44); Carbon Dioxide 28 mmol/L (23-31); Chloride 100 mmol/L (98-107); Globulin 3.1 g/dL (2.4-3.5); Glucose 112 mg/dL (83-110); Iron 188 ug/dL (65-175); Iron Binding Capacity, Total 185 mcg/dL (261-462); Potassium 3.7 mmol/L (3.5-5.1); Protein, Total 6.2 g/dL (5.8-8.1); Sodium 134 mmol/L (136-145)
[2021-02-26 05:51] LABS: Ferritin 703.53 ng/mL (22-322); Thyroid Stimulating Hormone 2.7034 uIU/mL (0.35-4.94)
[2021-02-26] MEDS ORDERED: Levothyroxine Sodium 50 MCG TAB PO SCH (06:00)
[2021-02-26 07:03] LABS: Hemoglobin 6.9 g/dL (14.0-18.0); Mean Corpuscular HGB CONC 31.1 g/dL (32.0-36.0); Mean Corpuscular Hemoglobin 25.8 pg (27.0-31.0); Mean Corpuscular Volume 82.9 fL (78.0-98.0); Platelet Count 13 thou/uL (130-400); RBC Distribution Width 27.7 % (11.5-14.5); Red Blood Cell (RBC) Count 2.68 mill/uL (4.70-6.10); White Blood Cell (WBC) Count 3.8 thou/uL (4.8-10.8)
[2021-02-26 07:08] LABS: Anisocytosis SLIGHT = 6-15 cells (100X) (0-5/hpf); Hypochromia SLIGHT = 6-15 cells (100X) (0-5/hpf); Lymphocytes 23 % (21-51); MDiff Complete? YES; Monocytes 11 % (0-10); Neutrophil 66 % (42-75); Nucleated RBC 2 % (0); Platelet Morphology Comment Appears Decreased; Polychromasia SLIGHT = 2-3 cells (100X) (0-2/hpf); Schistocytes SLIGHT = 2-5 cells (100X) (0-1/hpf)
[2021-02-26] MEDS ORDERED: predniSONE 5 MG TAB PO SCH (08:00)
[2021-02-26] MEDS: Mycophenolate 250 MG CAP PO SCH (08:39)
[2021-02-26] MEDS: Gabapentin 300 MG CAP PO SCH (08:40)
[2021-02-26] MEDS ORDERED: Aspirin 81 mg Enteric Coated Tablet PO SCH (09:00)
[2021-02-26] MEDS ORDERED: Torsemide 20 MG TAB PO SCH (09:00)
[2021-02-26] MEDS ORDERED: Calcium Carbonate 600 MG + Vit D TAB PO SCH (09:00)
[2021-02-26] MEDS ORDERED: Amlodipine 5 MG TAB PO SCH (09:00)
[2021-02-26] MEDS ORDERED: Losartan 25 MG TAB PO SCH (09:00)
[2021-02-26] MEDS ORDERED: Potassium Chloride 10 MEQ TAB PO SCH (09:00)
[2021-02-26] MEDS ORDERED: Folic Acid 1 MG TAB PO SCH (09:00)
[2021-02-26] MEDS ORDERED: Hydroxychloroquine Sulfate 200 MG TAB PO SCH (09:00)
[2021-02-26] MEDS ORDERED: Vitamin E 400 UNITS CAP PO SCH (09:00)
[2021-02-26] MEDS ORDERED: Potassium Chloride 20 MEQ TAB PO SCH (09:00)
[2021-02-26] MEDS ORDERED: Bromfenac Sodium [Prolensa] 3 ML Drops EA EYE SCH (09:00)
[2021-02-26 11:32] VITALS: BP 131/93; TEMP 97.7
== END 2021-02-26 13:15 | disposition home or self-care (01) | DRG 282 ==
LOC: ERS 09:47 → ERHOLD 12:46 → 2NO 16:03
PROVIDERS: ADMIT Internal Medicine; ATTEND Internal Medicine
DX: I48.19 Other persistent atrial fibrillation (principal); I21.A1 Myocardial infarction type 2; I35.0 Nonrheumatic aortic (valve) stenosis; D46.9 Myelodysplastic syndrome, unspecified; I10 Essential (primary) hypertension; Z20.822 Contact with and (suspected) exposure to COVID-19; K21.9 Gastro-esophageal reflux disease without esophagitis; E78.5 Hyperlipidemia, unspecified; M32.19 Other organ or system involvement in systemic lupus erythematosus; D69.6 Thrombocytopenia, unspecified; Z79.899 Other long term (current) drug therapy; Z79.82 Long term (current) use of aspirin; Z79.890 Hormone replacement therapy
CPT/HCPCS: 36415; 71045; 80053; 82553; 82728; 83540; 83550; 84443; 84484; 85025; 85610; 85730; 86850; 86900; 86901; 87635; 93005; 96365; 96375; J1160; J3475; J7512; J7517; U0003; U0005

== ENCOUNTER 2021-03-05 13:34 | Day surgery (SDC) | payer MEDICARE, OTHER ==
[2021-03-05] MEDS ORDERED: Sodium Chloride 0.9% 20 ML ONE (13:51)
[2021-03-05] MEDS ORDERED: Acetaminophen 500 MG TAB PO SCH (14:00)
[2021-03-05] MEDS ORDERED: diphenhydrAMINE 25 MG CAP PO SCH (14:00)
[2021-03-05 15:25] VITALS: TEMP 97.8
[2021-03-05 15:29] VITALS: BP 142/78
== END 2021-03-05 15:30 | disposition home or self-care (01) ==
LOC: ONC/OP 13:34
PROVIDERS: ATTEND Internal Medicine Hematology & Oncology
PROC: 30233R1 Transfusion of Nonautologous Platelets into Peripheral Vein, Percutaneous Approach (ICD-10-PCS; principal; 2021-03-05)
DX: D69.6 Thrombocytopenia, unspecified (principal)
CPT/HCPCS: 36430; 86850; 86900; 86901; P9035; Q0163

== ENCOUNTER 2021-03-06 11:28 | Day surgery (SDC) | payer MEDICARE, OTHER ==
[2021-03-06] MEDS ORDERED: diphenhydrAMINE 25 MG CAP PO SCH (12:30)
[2021-03-06] MEDS ORDERED: Acetaminophen 500 MG TAB PO SCH (12:30)
[2021-03-06 15:24] VITALS: BP 126/74; TEMP 98.1
== END 2021-03-06 15:26 | disposition home or self-care (01) ==
LOC: ONC/OP 11:28
PROVIDERS: ATTEND Internal Medicine Hematology & Oncology
PROC: 30233N1 Transfusion of Nonautologous Red Blood Cells into Peripheral Vein, Percutaneous Approach (ICD-10-PCS; principal; 2021-03-06)
DX: D64.9 Anemia, unspecified (principal)
CPT/HCPCS: 36430; 86850; 86900; 86901; P9016; Q0163

== ENCOUNTER 2021-04-01 14:00 | Day surgery (SDC) | payer MEDICARE, OTHER ==
[2021-04-01] MEDS ORDERED: Sodium Chloride 0.9% 20 ML ONE (14:45)
[2021-04-01] MEDS ORDERED: Acetaminophen 500 MG TAB PO SCH (15:00)
[2021-04-01] MEDS ORDERED: diphenhydrAMINE 25 MG CAP PO SCH (15:00)
[2021-04-01 15:27] VITALS: BP 134/90; TEMP 97.7
== END 2021-04-01 15:51 | disposition home or self-care (01) ==
LOC: ONC/OP 14:00
PROVIDERS: ATTEND Internal Medicine Hematology & Oncology
PROC: 30233R1 Transfusion of Nonautologous Platelets into Peripheral Vein, Percutaneous Approach (ICD-10-PCS; principal; 2021-04-01)
DX: D69.6 Thrombocytopenia, unspecified (principal); D64.9 Anemia, unspecified
CPT/HCPCS: 36430; 80053; 82248; 83615; 84100; 84550; 86850; 86900; 86901; P9035; Q0163

== ENCOUNTER 2021-04-10 12:42 | Inpatient (IN) | payer MEDICARE, OTHER ==
[2021-04-10] MEDS ORDERED: Diltiazem 125 MG/25 ML ONE (13:47)
[2021-04-10 14:05] LABS: #Lymphocytes 1.1 thou/uL (1.20-3.40); #Monocytes 0.2 thou/uL (0.11-0.59); #Neutrophils 4.1 thou/uL (1.40-6.50); %Basophils 0.5 % (0.0-1.0); %Eosinophils 0.1 % (0.0-10.0); %Lymphocytes 19.6 % (21.0-51.0); %Monocytes 2.7 % (0.0-10.0); Hemoglobin 9.6 g/dL (14.0-18.0); Mean Corpuscular HGB CONC 31.9 g/dL (32.0-36.0); Mean Corpuscular Volume 84.6 fL (78.0-98.0); Platelet Count 22 thou/uL (130-400); RBC Distribution Width 29.4 % (11.5-14.5); Red Blood Cell (RBC) Count 3.57 mill/uL (4.70-6.10); White Blood Cell (WBC) Count 5.3 thou/uL (4.8-10.8)
[2021-04-10 14:10] LABS: INR-International Normal Ratio 1.2; PTT 34.4 sec (22.9-36.1); Prothrombin Time 15.5 sec (12.0-14.7)
[2021-04-10 14:13] LABS: Bilirubin Negative (Negative); Blood, Urine Negative (Negative); Clarity Clear (Clear); Glucose, Urine (Dipstick) Normal (Negative); Ketone, Urine Negative (Negative); Leukocyte Negative Leu/uL (Negative); Nitrite Negative (Negative); Protein, Urine (Dipstick) Negative (Neg-Trace); Specific Gravity, Urine 1.011 (1.002-1.036); Urobilinogen Normal mg/dL (Less than 2)
[2021-04-10 14:33] LABS: ALT (SGPT) 15 U/L (8-55); AST (SGOT) 18 U/L (5-34); Albumin 3.6 g/dL (3.4-4.8); Alkaline Phosphatase 100 U/L (40-110); Anion Gap 13 mmol/L (10-20); BUN (Urea Nitrogen) 29 mg/dL (8.4-25.7); Bilirubin, Total 1.2 mg/dL (0.2-1.2); Calc. Creatinine Clearance 0 mL/min (70-130); Calcium 8.8 mg/dL (7.8-10.44); Carbon Dioxide 29 mmol/L (23-31); Chloride 99 mmol/L (98-107); Globulin 4.1 g/dL (2.4-3.5); Glucose 142 mg/dL (83-110); Potassium 4.1 mmol/L (3.5-5.1); Protein, Total 7.7 g/dL (5.8-8.1); Sodium 137 mmol/L (136-145)
[2021-04-10 14:46] LABS: CKMB 1.5 ng/mL (0-6.6)
[2021-04-10] MEDS ORDERED: Ondansetron PF 4 MG/2 ML Vial IVP PRN (15:56)
[2021-04-10] MEDS ORDERED: Acetaminophen 325 MG TAB PO PRN (15:56)
[2021-04-10] MEDS ORDERED: Senokot S 8.6-50 MG TAB PO PRN (15:56)
[2021-04-10 17:38] LABS: Lactic Acid 1.4 mmol/L (0.5-2.2)
[2021-04-10] MEDS: predniSONE 5 MG TAB PO SCH (17:43)
[2021-04-10 17:48] LABS: Troponin I 0.057 ng/mL (< 0.028)
[2021-04-10 19:05] VITALS: BMI 22.9
[2021-04-10] MEDS ORDERED: Sodium Chloride 0.9% 10 ML ONE (21:24)
[2021-04-10] MEDS: Gabapentin 300 MG CAP PO SCH (22:33)
[2021-04-10] MEDS: Latanoprost 0.005% Ophth Soln 2.5 ml Bottle EA EYE SCH (22:34)
[2021-04-10] MEDS: Atorvastatin Calcium 20 MG TAB PO SCH (22:34)
[2021-04-10] MEDS: Mycophenolate 250 MG CAP PO SCH (22:34)
[2021-04-11 00:10] LABS: SARS-CoV-2 PCR by NAA Not Detected (NotDetected)
[2021-04-11 04:39] LABS: #Monocytes 0.2 thou/uL (0.11-0.59); %Basophils 0.1 % (0.0-1.0); %Eosinophils 0.4 % (0.0-10.0); %Lymphocytes 18.3 % (21.0-51.0); %Monocytes 4.6 % (0.0-10.0); %Neutrophils 76.6 % (42.0-75.0); Hemoglobin 8.6 g/dL (14.0-18.0); Mean Corpuscular HGB CONC 30.7 g/dL (32.0-36.0); Mean Corpuscular Volume 84.7 fL (78.0-98.0); Mean Platelet Volume 20.9 fL (7.4-10.4); Platelet Count 33 thou/uL (130-400); RBC Distribution Width 28.9 % (11.5-14.5); Red Blood Cell (RBC) Count 3.32 mill/uL (4.70-6.10); White Blood Cell (WBC) Count 5.2 thou/uL (4.8-10.8)
[2021-04-11 04:59] LABS: ALT (SGPT) 13 U/L (8-55); AST (SGOT) 16 U/L (5-34); Alkaline Phosphatase 80 U/L (40-110); Anion Gap 9 mmol/L (10-20); BUN (Urea Nitrogen) 22 mg/dL (8.4-25.7); Bilirubin, Total 1.3 mg/dL (0.2-1.2); Calc. Creatinine Clearance 73 mL/min (70-130); Calcium 8.7 mg/dL (7.8-10.44); Carbon Dioxide 27 mmol/L (23-31); Chloride 99 mmol/L (98-107); Globulin 3.8 g/dL (2.4-3.5); Glucose 116 mg/dL (83-110); Potassium 3.7 mmol/L (3.5-5.1); Protein, Total 6.8 g/dL (5.8-8.1); Sodium 131 mmol/L (136-145)
[2021-04-11] MEDS: Levothyroxine Sodium 50 MCG TAB PO SCH (05:47)
[2021-04-11] MEDS: Diltiazem 125 MG in Sodium Chloride 0.9% 100 ML IVPB SCH (05:47)
[2021-04-11] MEDS: Mycophenolate 250 MG CAP PO SCH ×2 (08:30→21:20)
[2021-04-11] MEDS: Aspirin 81 mg Enteric Coated Tablet PO SCH (08:38)
[2021-04-11] MEDS ORDERED: Bromfenac Sodium [Prolensa] EA EYE SCH ×2 (09:00)
[2021-04-11] MEDS: Gabapentin 300 MG CAP PO SCH ×2 (09:04→21:21)
[2021-04-11] MEDS: Fluticasone Propionate Nasal Spray 16 gm Bottle NASAL SCH (09:04)
[2021-04-11] MEDS: TETRABENAZINE 12.5 MG PO SCH ×4 (09:04→23:41)
[2021-04-11] MEDS: Vitamin E 400 UNITS CAP PO SCH (09:05)
[2021-04-11] MEDS: predniSONE 5 MG TAB PO SCH ×2 (09:05→15:18)
[2021-04-11] MEDS: Hydroxychloroquine Sulfate 200 MG TAB PO SCH (09:05)
[2021-04-11] MEDS: Folic Acid 1 MG TAB PO SCH (09:05)
[2021-04-11] MEDS: Calcium Carbonate 600 MG + Vit D TAB PO SCH (09:05)
[2021-04-11] MEDS: Latanoprost 0.005% Ophth Soln 2.5 ml Bottle EA EYE SCH (21:20)
[2021-04-11] MEDS: traZODone HCl 50 MG TAB PO PRN (21:21)
[2021-04-11] MEDS: Atorvastatin Calcium 20 MG TAB PO SCH (21:21)
[2021-04-12 04:35] LABS: ALT (SGPT) 13 U/L (8-55); AST (SGOT) 22 U/L (5-34); Albumin 3.1 g/dL (3.4-4.8); Alkaline Phosphatase 88 U/L (40-110); Anion Gap 12 mmol/L (10-20); BUN (Urea Nitrogen) 20 mg/dL (8.4-25.7); Calc. Creatinine Clearance 75 mL/min (70-130); Calcium 8.4 mg/dL (7.8-10.44); Carbon Dioxide 21 mmol/L (23-31); Chloride 102 mmol/L (98-107); Globulin 3.7 g/dL (2.4-3.5); Glucose 119 mg/dL (83-110); Magnesium 1.9 mg/dL (1.6-2.6); Potassium 4.4 mmol/L (3.5-5.1); Protein, Total 6.8 g/dL (5.8-8.1); Sodium 131 mmol/L (136-145)
[2021-04-12 05:16] LABS: Hemoglobin 8.6 g/dL (14.0-18.0); Mean Corpuscular HGB CONC 32.3 g/dL (32.0-36.0); Mean Corpuscular Hemoglobin 27.3 pg (27.0-31.0); Mean Corpuscular Volume 84.6 fL (78.0-98.0); RBC Distribution Width 28.7 % (11.5-14.5); Red Blood Cell (RBC) Count 3.15 mill/uL (4.70-6.10); White Blood Cell (WBC) Count 5.1 thou/uL (4.8-10.8)
[2021-04-12 05:36] LABS: MDiff Complete? YES; Platelet Count 20 thou/uL (130-400)
[2021-04-12 05:37] LABS: Band 1 % (5-11); Eosinophils 1 % (0-10); Lymphocytes 21 % (21-51); Monocytes 13 % (0-10); Neutrophil 64 % (42-75); Platelet Morphology Comment Appears Decreased
[2021-04-12] MEDS: Levothyroxine Sodium 50 MCG TAB PO SCH (05:39)
[2021-04-12] MEDS: Diltiazem 125 MG in Sodium Chloride 0.9% 100 ML IVPB SCH (05:39)
[2021-04-12 05:58] LABS: #Basophils 0.1 thou/uL (0.0-0.2); #Lymphocytes 1.2 thou/uL (1.20-3.40); #Neutrophils 3.9 thou/uL (1.40-6.50); %Basophils 1.2 % (0.0-1.0); %Eosinophils 0.1 % (0.0-10.0); %Lymphocytes 23.7 % (21.0-51.0); %Monocytes 0.7 % (0.0-10.0); %Neutrophils 74.2 % (42.0-75.0)
[2021-04-12] MEDS: predniSONE 5 MG TAB PO SCH ×2 (08:28→17:08)
[2021-04-12] MEDS: Vitamin E 400 UNITS CAP PO SCH (08:28)
[2021-04-12] MEDS: Calcium Carbonate 600 MG + Vit D TAB PO SCH (08:28)
[2021-04-12] MEDS: Fluticasone Propionate Nasal Spray 16 gm Bottle NASAL SCH (08:29)
[2021-04-12] MEDS: Hydroxychloroquine Sulfate 200 MG TAB PO SCH (08:29)
[2021-04-12] MEDS: Mycophenolate 250 MG CAP PO SCH ×2 (08:29→20:30)
[2021-04-12] MEDS: Gabapentin 300 MG CAP PO SCH ×2 (08:29→20:32)
[2021-04-12] MEDS: Folic Acid 1 MG TAB PO SCH (08:29)
[2021-04-12] MEDS: TETRABENAZINE 12.5 MG PO SCH ×3 (08:30→20:32)
[2021-04-12] MEDS ORDERED: BRIMONIDINE TARTRATE EA EYE SCH (09:00)
[2021-04-12] MEDS: Aspirin 81 mg Enteric Coated Tablet PO SCH (09:48)
[2021-04-12] MEDS ORDERED: Diltiazem HCl SR 60 mg Capsule PO SCH (10:15)
[2021-04-12] MEDS: Latanoprost 0.005% Ophth Soln 2.5 ml Bottle EA EYE SCH (20:29)
[2021-04-12] MEDS: traZODone HCl 50 MG TAB PO PRN (20:30)
[2021-04-12] MEDS: Atorvastatin Calcium 20 MG TAB PO SCH (20:31)
[2021-04-13] MEDS: Levothyroxine Sodium 50 MCG TAB PO SCH (05:10)
[2021-04-13] MEDS: TETRABENAZINE 12.5 MG PO SCH ×2 (08:22→15:44)
[2021-04-13] MEDS: Calcium Carbonate 600 MG + Vit D TAB PO SCH (08:23)
[2021-04-13] MEDS: Hydroxychloroquine Sulfate 200 MG TAB PO SCH (08:23)
[2021-04-13] MEDS: Vitamin E 400 UNITS CAP PO SCH (08:23)
[2021-04-13] MEDS: Mycophenolate 250 MG CAP PO SCH (08:23)
[2021-04-13] MEDS: Gabapentin 300 MG CAP PO SCH (08:23)
[2021-04-13] MEDS: Fluticasone Propionate Nasal Spray 16 gm Bottle NASAL SCH (08:23)
[2021-04-13] MEDS: Folic Acid 1 MG TAB PO SCH (08:24)
[2021-04-13] MEDS: predniSONE 5 MG TAB PO SCH ×2 (08:24→17:06)
[2021-04-13] MEDS: Aspirin 81 mg Enteric Coated Tablet PO SCH (10:40)
[2021-04-13 11:12] LABS: Hemoglobin 9.3 g/dL (14.0-18.0); Mean Corpuscular HGB CONC 31.5 g/dL (32.0-36.0); Mean Corpuscular Hemoglobin 26.6 pg (27.0-31.0); Mean Corpuscular Volume 84.5 fL (78.0-98.0)
[2021-04-13 12:00] LABS: Anisocytosis SLIGHT = 6-15 cells (100X) (0-5/hpf); Burr Cells SLIGHT = 2-5 cells (100X) (0-1/hpf); Elliptocytes SLIGHT = 2-5 cells (100X) (0-1/hpf); Hypochromia SLIGHT = 6-15 cells (100X) (0-5/hpf); Lymphocytes 16 % (21-51); MDiff Complete? YES; Monocytes 10 % (0-10); Neutrophil 73 % (42-75); Platelet Count 26 thou/uL (130-400); Platelet Morphology Comment Appears Decreased; Polychromasia SLIGHT = 2-3 cells (100X) (0-2/hpf); Schistocytes SLIGHT = 2-5 cells (100X) (0-1/hpf); White Blood Cell (WBC) Count 4.4 thou/uL (4.8-10.8)
[2021-04-13 12:10] LABS: Mean Platelet Volume 21.4 fL (7.4-10.4)
[2021-04-13 16:55] VITALS: BP 139/72; TEMP 98
== END 2021-04-13 17:03 | DRG 812 ==
LOC: ERS 12:42 → 2NO 15:19
PROVIDERS: ADMIT Internal Medicine; ATTEND Internal Medicine
PROC: 30233R1 Transfusion of Nonautologous Platelets into Peripheral Vein, Percutaneous Approach (ICD-10-PCS; principal; 2021-04-10)
DX: D46.9 Myelodysplastic syndrome, unspecified (principal); N17.9 Acute kidney failure, unspecified; I24.8 Other forms of acute ischemic heart disease; E44.0 Moderate protein-calorie malnutrition; I48.91 Unspecified atrial fibrillation; E03.9 Hypothyroidism, unspecified; Z66 Do not resuscitate; M32.19 Other organ or system involvement in systemic lupus erythematosus; Z20.822 Contact with and (suspected) exposure to COVID-19; Z68.22 Body mass index [BMI] 22.0-22.9, adult; Z79.82 Long term (current) use of aspirin; Z79.899 Other long term (current) drug therapy; Z85.46 Personal history of malignant neoplasm of prostate
CPT/HCPCS: 36415; 36430; 70450; 71045; 72070; 72125; 80053; 81003; 82553; 83605; 83735; 83880; 84484; 85025; 85610; 85730; 86850; 86900; 86901; 87040; 87086; 93005; 94760; 96365; 96366; J3490; J7512; J7517; P9035; U0003; U0005

== ENCOUNTER 2021-05-01 16:15 | Day surgery (SDC) | payer MEDICARE, OTHER ==
[2021-05-01] MEDS ORDERED: Acetaminophen 500 MG TAB PO SCH (16:45)
[2021-05-01] MEDS ORDERED: diphenhydrAMINE 25 MG CAP PO SCH (16:45)
[2021-05-02 05:56] VITALS: BP 143/83; TEMP 97.8
[2021-05-02 07:44] LABS: Anisocytosis MODERATE=16-30 cells (100X) (0-5/hpf); Band 1 % (5-11); Hemoglobin 7.4 g/dL (14.0-18.0); Hypochromia MODERATE=16-30 cells (100X) (0-5/hpf); Lymphocytes 13 % (21-51); MDiff Complete? YES; Mean Corpuscular HGB CONC 33.6 g/dL (32.0-36.0); Mean Corpuscular Hemoglobin 27.9 pg (27.0-31.0); Monocytes 8 % (0-10); Neutrophil 78 % (42-75); Nucleated RBC 2 % (0); Platelet Count 35 thou/uL (130-400); Poikilocytosis MODERATE=16-30 cells (100X) (0-5/hpf); Polychromasia SLIGHT = 2-3 cells (100X) (0-2/hpf); RBC Distribution Width 26.6 % (11.5-14.5); Red Blood Cell (RBC) Count 2.64 mill/uL (4.70-6.10); Schistocytes SLIGHT = 2-5 cells (100X) (0-1/hpf); White Blood Cell (WBC) Count 4.8 thou/uL (4.8-10.8)
== END 2021-05-02 06:35 | disposition home or self-care (01) ==
LOC: SJJU 16:15 → SDC/OP 16:15
PROVIDERS: ATTEND Internal Medicine Hematology & Oncology
PROC: 30233N1 Transfusion of Nonautologous Red Blood Cells into Peripheral Vein, Percutaneous Approach (ICD-10-PCS; principal; 2021-05-01)
PROC: 30233R1 Transfusion of Nonautologous Platelets into Peripheral Vein, Percutaneous Approach (ICD-10-PCS; 2021-05-01)
DX: D64.9 Anemia, unspecified (principal); D69.6 Thrombocytopenia, unspecified
CPT/HCPCS: 36430; 85025; 86850; 86900; 86901; 86920; P9016; P9035

== ENCOUNTER 2021-05-05 11:06 | Emergency (ER) | payer MEDICARE, OTHER ==
[2021-05-05 11:51] LABS: Hemoglobin 7.8 g/dL (14.0-18.0); Mean Corpuscular HGB CONC 32.3 g/dL (32.0-36.0); Mean Corpuscular Hemoglobin 27.2 pg (27.0-31.0); Mean Corpuscular Volume 84.3 fL (78.0-98.0); Platelet Count 9 thou/uL (130-400); RBC Distribution Width 26.6 % (11.5-14.5); Red Blood Cell (RBC) Count 2.85 mill/uL (4.70-6.10); White Blood Cell (WBC) Count 5.3 thou/uL (4.8-10.8)
[2021-05-05 12:00] LABS: INR-International Normal Ratio 1.4; Prothrombin Time 17.4 sec (12.0-14.7)
[2021-05-05 12:01] LABS: PTT 35.9 sec (22.9-36.1)
[2021-05-05 12:08] LABS: ALT (SGPT) 16 U/L (8-55); AST (SGOT) 20 U/L (5-34); Albumin 3.1 g/dL (3.4-4.8); Alkaline Phosphatase 108 U/L (40-110); Anion Gap 9 mmol/L (10-20); BUN (Urea Nitrogen) 25 mg/dL (8.4-25.7); Calc. Creatinine Clearance 0 mL/min (70-130); Calcium 8.4 mg/dL (7.8-10.44); Carbon Dioxide 24 mmol/L (23-31); Chloride 104 mmol/L (98-107); Glucose 132 mg/dL (83-110); Potassium 3.5 mmol/L (3.5-5.1); Protein, Total 6.1 g/dL (5.8-8.1); Sodium 133 mmol/L (136-145)
[2021-05-05 12:19] LABS: Anisocytosis MARKED = >30 cells (100X) (0-5/hpf); Band 3 % (5-11); Bite Cells SLIGHT = 2-5 cells (100X) (0-1/hpf); Eosinophils 1 % (0-10); Hypochromia SLIGHT = 6-15 cells (100X) (0-5/hpf); Lymphocytes 18 % (21-51); MDiff Complete? YES; Monocytes 5 % (0-10); Neutrophil 72 % (42-75); Nucleated RBC 1 % (0); Platelet Morphology Comment Appears Decreased; Polychromasia MODERATE = 3-4 cells (100X) (0-2/hpf); Schistocytes MODERATE= 6-15 cells (100X) (0-1/hpf)
[2021-05-05 12:37] LABS: CKMB 2.2 ng/mL (0-6.6)
[2021-05-05] MEDS ORDERED: Acetaminophen 500 MG TAB ONE (16:21)
== END 2021-05-05 18:36 | disposition home or self-care (01) ==
LOC: ERS 11:06
DX: D64.9 Anemia, unspecified (principal); R79.89 Other specified abnormal findings of blood chemistry; D69.6 Thrombocytopenia, unspecified; R59.1 Generalized enlarged lymph nodes; D72.829 Elevated white blood cell count, unspecified; I48.91 Unspecified atrial fibrillation; E78.5 Hyperlipidemia, unspecified; E78.00 Pure hypercholesterolemia, unspecified; I10 Essential (primary) hypertension; Z85.89 Personal history of malignant neoplasm of other organs and systems; Z85.46 Personal history of malignant neoplasm of prostate; Z79.899 Other long term (current) drug therapy
CPT/HCPCS: 36430; 80053; 82553; 84484; 85025; 85610; 85730; 86850; 86900; 86901; 86920; 93005; P9016; P9035; 36415

== ENCOUNTER 2021-05-07 15:04 | Emergency (ER) | payer MEDICARE, OTHER ==
[2021-05-07] MEDS ORDERED: Boostrix 0.5 ML (Tdap) VIAL ONE ×2 (16:21→16:22)
[2021-05-07] MEDS ORDERED: Lidocaine 1% (PF) 30 ML VIAL ONE (16:48)
== END 2021-05-07 18:43 | disposition home or self-care (01) ==
LOC: ERS 15:04
DX: S92.514B Nondisplaced fracture of proximal phalanx of right lesser toe(s), initial encounter for open fracture (principal); E78.5 Hyperlipidemia, unspecified; I10 Essential (primary) hypertension; W19.XXXA Unspecified fall, initial encounter
CPT/HCPCS: 12001; 90471; 90715; J2001